=== PATIENT | female | born 1965 | race Caucasian/White ===

== ENCOUNTER → 2019-06-15 | Outpatient (CLI) | payer OTHER ==
[~2019-06-15] MED LIST: ISOVUE-370 76% 100ML VIAL (Q9967) As Ordered ONE
--- NOTE | 2019-06-15 09:00 | REPVR ---
PROCEDURE INFORMATION: Exam: CT Neck With Contrast Exam date and time: 06/15/2019 8:40 AM Age: 53 years old Clinical indication: Other: Vocal cords; Additional info: Paralyzed vocal cords TECHNIQUE: Imaging protocol: Computed tomography images of the neck with intravenous contrast. Radiation optimization: All CT scans at this facility use at least one of these dose optimization techniques: automated exposure control; mA and/or kV adjustment per patient size (includes targeted exams where dose is matched to clinical indication); or iterative reconstruction. Contrast material: ISOVUE 370; Contrast volume: 75 ml; Contrast route: IV; COMPARISON: No relevant prior studies available. FINDINGS: Nasopharynx: Unremarkable. Oropharynx: Unremarkable. No significant tonsillar enlargement. Hypopharynx: Unremarkable. Larynx: There is medialization of the right vocal cord consistent with right vocal cord paralysis, please correlate clinically. No corresponding anatomic abnormality is identified that reveals the cause of patient's right vocal cord paralysis. Retropharyngeal space: Unremarkable. Submandibular/Parotid glands: Normal. Glands are normal in size. Thyroid: Normal. No enlarged or calcified nodules. Lymph nodes: Unremarkable. No lymphadenopathy. Trachea: Visualized trachea is unremarkable. Lungs: Unremarkable as visualized. Bones/joints: Unremarkable. No acute fracture. Soft tissues: Unremarkable. No significant soft tissue swelling. IMPRESSION: There is medialization of the right vocal cord consistent with right vocal cord paralysis, please correlate clinically. No corresponding anatomic abnormality is identified that reveals the cause of patient's right vocal cord paralysis. If patient's symptoms persist and/or worsen, followup postcontrast MRI of the neck would be recommended. Electronically signed by: Aftab Sosa On 06/15/2019 09:00:20 AM
== END ==
LOC: M RAD 08:10
PROVIDERS: ATTEND Otolaryngology
DX: J38.00 Paralysis of vocal cords and larynx, unspecified (principal)
CPT/HCPCS: 70491; Q9967